=== PATIENT | male | born 1980 | race Two or more races ===

== ENCOUNTER 2023-03-08 14:34 | Emergency (ER) | payer OTHER ==
[~2023-03-08] VITALS: Ht 177.8 cm; Wt 86.2 kg
[2023-03-08] MEDS ORDERED: KETO10TA2 PO (19:07)
[2023-03-08] MEDS ORDERED: NORFLEX100MG PO (19:07)
== END 2023-03-08 19:16 | disposition home or self-care (01) ==
LOC: ER 14:34
DX: M54.59 Other low back pain (principal); Z91.013 Allergy to seafood; E03.9 Hypothyroidism, unspecified